=== PATIENT | male | born 2000 | race Two or more races ===

== ENCOUNTER 2023-09-27 16:06 | Emergency (ER) | payer SELFPAY ==
[~2023-09-27] VITALS: Ht 170.2 cm; Wt 73.6 kg
[2023-09-27 20:00] VITALS: BP 109/70; PULSE 102; RESP 18; TEMP 99.8
[2023-09-27 21:19] LABS: COVID19 ANTIGEN SOFIA FIA NEGATIVE (NEGATIVE)
[2023-09-27] MEDS ORDERED: IPRATROPIUM BROM 0.5 MG/2.5ML INH SOL NEB ONE (21:30)
[2023-09-27] MEDS ORDERED: ALBUTEROL SULF 2.5 MG/0.5ML(0.5%) NEB SOLN NEB ONE (21:30)
[2023-09-27] MEDS ORDERED: DexAMETHasone SOD PHOS 10MG/1ML VIAL INJ IM ONE (21:30)
[2023-09-27] MEDS ORDERED: cefTRIAXone SOD 1,000 MG VL IM ONE (21:30)
[2023-09-27] MEDS ORDERED: BENZ200C64 PO (21:33)
[2023-09-27] MEDS ORDERED: PRED20TA2 PO (21:33)
[2023-09-27] MEDS ORDERED: AUG875T PO (21:33)
[2023-09-27] MEDS ORDERED: ALBUAER3 IN (21:33)
[2023-09-27] MEDS ORDERED: ALBUTEROL SULF 2.5 MG/0.5ML(0.5%) NEB SOLN ONE (21:40)
[2023-09-27] MEDS ORDERED: IPRATROPIUM BROM 0.5 MG/2.5ML INH SOL ONE (21:40)
[2023-09-27 22:08] VITALS: O2SAT 97
== END 2023-09-27 22:52 | disposition home or self-care (01) ==
LOC: ER 16:06
DX: J18.9 Pneumonia, unspecified organism (principal); J45.901 Unspecified asthma with (acute) exacerbation; Z20.822 Contact with and (suspected) exposure to COVID-19
CPT/HCPCS: 36415; 71045; 87426; 94640; 96372; 99284; J0696; J1100; J7644